=== PATIENT | male | born 1955 | race African-American/Black ===

== ENCOUNTER 2016-09-12 13:22 | Emergency (ER) | payer MEDICAID ==
[~2016-09-12] VITALS: Ht 188 cm; Wt 65.0 kg
[~2016-09-12 13:22] MED LIST: TRAM50TA2 PO
[2016-09-12] MEDS ORDERED: BACITRACIN ZINC OINT 500U/GM, 0.9 GM ONE (15:10)
[2016-09-12 15:21] VITALS: BP 132/79
== END 2016-09-12 15:23 | disposition home or self-care (01) ==
LOC: ED 14:11
DX: S00.83XA Contusion of other part of head, initial encounter (principal); S20.211A Contusion of right front wall of thorax, initial encounter; I10 Essential (primary) hypertension; F20.9 Schizophrenia, unspecified; Y04.8XXA Assault by other bodily force, initial encounter; Y93.89 Activity, other specified; Y92.89 Other specified places as the place of occurrence of the external cause; Y99.8 Other external cause status; Z87.891 Personal history of nicotine dependence
CPT/HCPCS: 70486

== ENCOUNTER 2016-11-05 21:09 | Observation (INO) | payer MEDICAID ==
[~2016-11-05] VITALS: Ht 188 cm; Wt 80.0 kg
[2016-11-05] MEDS ORDERED: ZIPRASIDONE 20 MG INJ IM ONE ×2 (21:19→21:30)
[2016-11-05] MEDS ORDERED: PLEASE ENTER HEIGHT AND WEIGHT MC SCH (21:30)
[2016-11-05] MEDS ORDERED: LORazepam 2 MG/ML, 1ML IM ONE (21:30)
[2016-11-05] MEDS ORDERED: SODIUM CHLORIDE 0.9% 1,000ML IVBOLUS ONE (21:30)
[2016-11-05 21:53] LABS: ASPARTATE AMINO TRANSFERASE 58 U/L (15-37); BLOOD UREA NITROGEN 19 mg/dL (7-18)
[2016-11-05 22:00] LABS: ACETAMINOPHEN < 2 mcg/mL (10-30)
[2016-11-05 22:29] LABS: DIFF TOTAL CELLS COUNTED 100 CELL DIFF
[2016-11-05 22:37] LABS: VERIFY COUNTS? YES
[2016-11-05 23:55] LABS: DAU SCREEN DISCLAIMER
[2016-11-06] MEDS ORDERED: ZIPRASIDONE 20 MG INJ IM PRN (02:30)
[2016-11-06] MEDS ORDERED: ZIPRASIDONE 20MG CAPSULE PO PRN (02:30)
[2016-11-06] MEDS ORDERED: LORazepam 2 MG/ML, 1ML IM PRN (02:30)
[2016-11-06] MEDS ORDERED: DOCUSATE 100 MG CAPSULE PO PRN (02:30)
[2016-11-06] MEDS ORDERED: POLYETHYLENE GLYCOL 17 GM PACKET PO PRN (02:30)
[2016-11-06] MEDS ORDERED: ONDANSETRON ODT 4 MG PO PRN (02:30)
[2016-11-06 03:26] VITALS: BP 140/85
[2016-11-06 05:08] LABS: PATH.CAST-FLAG NOT PRESENT; SPERM-FLAG NOT PRESENT; SRC-FLAG NOT PRESENT; XTAL-FLAG NOT PRESENT; YLC-FLAG NOT PRESENT
[2016-11-06 08:21] VITALS: BP 121/72
[2016-11-06] MEDS ORDERED: ACETAMINOPHEN 325 MG TABLET PO PRN (10:00)
[2016-11-06] MEDS: LORazepam 1MG TABLET PO PRN (14:37)
[2016-11-06] MEDS ORDERED: KETOROLAC 30 MG/1 ML IM PRN (15:00)
[2016-11-06 20:07] VITALS: BP 124/79
[2016-11-07] MEDS: LORazepam 1MG TABLET PO PRN (00:32)
[2016-11-07 08:42] VITALS: BP 122/70
== END 2016-11-07 16:35 ==
LOC: ED 21:47 → EDIP 11-06 02:29 → 3E 11-06 03:23
PROVIDERS: ADMIT Internal Medicine; ATTEND Internal Medicine
DX: F23 Brief psychotic disorder (principal); F20.9 Schizophrenia, unspecified; F15.10 Other stimulant abuse, uncomplicated; R44.1 Visual hallucinations; R74.0 Nonspecific elevation of levels of transaminase and lactic acid dehydrogenase [LDH]; D75.89 Other specified diseases of blood and blood-forming organs; B18.2 Chronic viral hepatitis C; F17.210 Nicotine dependence, cigarettes, uncomplicated; I10 Essential (primary) hypertension; Z90.81 Acquired absence of spleen
CPT/HCPCS: 36415; 80053; 80307; 80329; 81001; 82140; 84439; 84443; 85025; 96360; 96361; 96372; 99285; G0378; J1885; J3486; J7030; G0480

== ENCOUNTER 2016-11-19 06:29 | Emergency (ER) | payer MEDICAID ==
[~2016-11-19] VITALS: Ht 190.5 cm; Wt 70.0 kg
[2016-11-19 08:27] VITALS: BP 133/87
== END 2016-11-19 08:29 | disposition left against medical advice (07) ==
LOC: ED 08:07
DX: R05 Cough (principal); I10 Essential (primary) hypertension; E87.6 Hypokalemia; R63.4 Abnormal weight loss
CPT/HCPCS: 99281

== ENCOUNTER 2017-04-08 13:12 | Emergency (ER) | payer MEDICAID ==
[~2017-04-08] VITALS: Ht 190.5 cm; Wt 72.2 kg
[2017-04-08 13:37] VITALS: BP 133/87
== END 2017-04-08 15:01 ==
LOC: ED 14:55
DX: J44.1 Chronic obstructive pulmonary disease with (acute) exacerbation (principal); J15.9 Unspecified bacterial pneumonia
CPT/HCPCS: 71020; 99284

== ENCOUNTER 2017-04-08 19:34 | Emergency (ER) | payer MEDICAID ==
[~2017-04-08] VITALS: Ht 177.8 cm; Wt 72.0 kg
[2017-04-08] MEDS ORDERED: ZIPRASIDONE 20 MG INJ IM ONE ×2 (20:37→21:00)
[2017-04-08] MEDS ORDERED: SODIUM CHLORIDE 0.9% 1,000ML IVBOLUS ONE (21:00)
[2017-04-09 04:31] VITALS: BP 121/70
== END 2017-04-09 05:51 | disposition left against medical advice (07) ==
LOC: ED 21:19
DX: Z00.00 Encounter for general adult medical examination without abnormal findings (principal); R41.82 Altered mental status, unspecified; F15.10 Other stimulant abuse, uncomplicated; J44.9 Chronic obstructive pulmonary disease, unspecified; I10 Essential (primary) hypertension
CPT/HCPCS: 93005; 96360; 96361; 96372; 99285; J3486; J7030

== ENCOUNTER 2017-04-26 12:42 | Emergency (ER) | payer MEDICAID ==
[~2017-04-26] VITALS: Ht 190.5 cm; Wt 70.9 kg
[2017-04-26 12:51] VITALS: BP 115/74
== END 2017-04-26 14:22 | disposition home or self-care (01) ==
LOC: ED 13:34
DX: J20.9 Acute bronchitis, unspecified (principal); B96.89 Other specified bacterial agents as the cause of diseases classified elsewhere; J44.9 Chronic obstructive pulmonary disease, unspecified; I10 Essential (primary) hypertension; F17.210 Nicotine dependence, cigarettes, uncomplicated
CPT/HCPCS: 99283